=== PATIENT | male | born 1960 | race Caucasian/White ===

== ENCOUNTER 2018-03-25 19:30 | Outpatient (REF) | payer BC, SELFPAY ==
--- NOTE | 2018-03-25 17:50 | SKI_PTH ---
PATIENT: Rom Singh LOC: [facility] U#:[id number] AGE/SX: 57/M ROOM: RE03/25/[address]: Chapin Romo : 1960 BED: DIS: 03/25/2018 SPEC #: [id number] RECD: 03/26/18 12:21 STATUS: JUSTINE REImani #: [id number] STEVIE: 03/25/18 17:[address]: Chapin Romo DEPT: Surgical Specimen RECD BY: Celeste Simpson ENTERED: 03/26/18 12:22 SP TYPE: JIMMY MAGAÑA DR: Aria Hernandes V Tissues: 1 - SKIN BIOPSY(SHAVE/PUNCH) Procedures: SKIN LEVEL 4 Comments: [id number]
== END 2018-03-25 19:50 ==
LOC: NCHCN 19:30
PROVIDERS: PCP Family Medicine; Visit Provider Specialist/Technologist Athletic Trainer
DX: D18.01 Hemangioma of skin and subcutaneous tissue (principal)
CPT/HCPCS: 88305

== ENCOUNTER 2018-05-12 06:43 | Outpatient (CLI) | payer BC, SELFPAY ==
--- NOTE | 2018-05-12 07:00 | DI.US_ITS ---
SYMPTOM/DIAGNOSIS: ABD PAIN, R10.9, RT GREATER THAN LEFT ABDOMEN ULTRASOUND: Routine examination. No priors. The aorta is of normal caliber. The inferior vena cava is unremarkable. The liver is normal in size and echogenicity. There is a 2.3 cm., well circumscribed, anechoic lesion in the posterior aspect of the right lobe of the liver consistent with a cyst. There is a second 1.8 cm., partially septated anechoic lesion in the anterior aspect of the right lobe of the liver suggestive of a cyst. No solid renal mass is present. There is normal flow through the portal vein. The gallbladder, common duct, pancreas and spleen are all unremarkable. The left kidney has a normal appearance. The right kidney measures 10.9 cm. long. There is a 5.4 cm. simple, well circumscribed, anechoic lesion in the superior pole of the right kidney consistent with a simple cyst. IMPRESSION: 1. Hepatic cysts, one of which appears partially septated. A follow up examination is recommended. This may either be a post contrast CT scan of the abdomen or a follow up abdomen ultrasound in 4-6 months for re- evaluation of the hepatic cysts. 2. Right renal cyst.
== END 2018-05-12 07:03 ==
PROVIDERS: PCP Family Medicine; Visit Provider Specialist/Technologist Athletic Trainer
DX: R10.31 Right lower quadrant pain (principal); K76.89 Other specified diseases of liver; N28.1 Cyst of kidney, acquired
CPT/HCPCS: 76700

== ENCOUNTER 2018-05-26 00:18 | Outpatient (CLI) | payer BC, SELFPAY ==
--- NOTE | 2018-05-26 08:40 | DI.RAD_ITS ---
SYMPTOMS/DIAGNOSIS: DIFFICULTY SWALLOWING, ABDOMINAL PAIN, R13.10, R10.9 BARIUM SWALLOW AND UPPER GI SERIES: Preliminary films of the chest and abdomen are grossly unremarkable. Barium was ingested and showed grossly normal hypopharyngeal motility. Esophagus shows normal motility and mucosal appearance. The 12 mm barium tablet passed easily through the esophagus into the stomach. No gastric ulceration or obstruction seen. Duodenum appears intact. CONCLUSION: Negative upper GI and barium swallow.
[2018-05-26] MEDS: Barium Sulfate 60% W/V 355 ML BTL PO (09:52)
[2018-05-26] MEDS: Barium Sulfate 700 MG TAB PO (09:54)
== END 2018-05-26 00:38 ==
PROVIDERS: PCP Family Medicine; Visit Provider Specialist/Technologist Athletic Trainer
DX: R13.10 Dysphagia, unspecified (principal); R10.9 Unspecified abdominal pain
CPT/HCPCS: 74220; 74247

== ENCOUNTER 2018-12-09 07:28 | Outpatient (CLI) | payer BC, SELFPAY ==
[2018-12-09 10:54] LABS: CREATININE 0.96 mg/dL (0.70-1.30)
--- NOTE | 2018-12-09 11:30 | DI.CT_ITS ---
SYMPTOMS/DIAGNOSIS: MEDIASTINAL LYMPHADENOPATHY, R59.0, NIGHT SWEATS, CHEST PRESSURE, 40-POUND WEIGHT LOSS OVER 1 YEAR, DIAGNOSED WITH SARCOIDOSIS IN AUGUST 2018 CT SCAN OF THE CHEST: CT scan of the chest was performed following the uneventful administration of intravenous contrast material. Comparison examination is 07/28/18. There is again seen thoracic adenopathy. There are enlarged mediastinal, subcarinal and hilar lymph nodes present. The enlarged right paratracheal lymph node is again seen and measures 1.9 cm. This is unchanged compared to the prior examination (2.1 cm). There is an enlarged right hilar lymph node. It measures 2.4 cm. This is unchanged (2.4 cm). The previously noted left hilar lymph node measures 0.9 cm compared with 1.0 cm. The subcarinal lymph node measures 2.1 cm compared with 2.5 cm. The visualized thyroid gland appears unremarkable. The thoracic aorta is normal in appearance. The heart size is within normal limits. No significant pericardial effusion is seen. No pleural effusion or pneumothorax is identified. The lungs remain clear. The tracheobronchial tree is unremarkable. The upper abdominal images again show multiple hepatic and renal cysts. There are now enlarged lymph nodes in the region of the celiac axis and adjacent to the inferior vena cava. The largest measures 2.4 x 2 cm. IMPRESSION: 1. Stable thoracic adenopathy. 2. Upper abdominal adenopathy. CT scan of the abdomen and pelvis should be considered for further evaluation.
[2018-12-09] MEDS: Omnipaque 350 MG/ML 100 ML BTL IV (11:31)
== END 2018-12-09 07:48 ==
PROVIDERS: PCP Family Medicine; Visit Provider Internal Medicine Critical Care Medicine
DX: R59.0 Localized enlarged lymph nodes (principal); R61 Generalized hyperhidrosis; R07.89 Other chest pain; R63.4 Abnormal weight loss; D86.9 Sarcoidosis, unspecified; R93.89 Abnormal findings on diagnostic imaging of other specified body structures; Z13.89 Encounter for screening for other disorder
CPT/HCPCS: 71260; 82565; J3490

== ENCOUNTER 2020-05-18 18:02 | Outpatient (REF) | payer BC, SELFPAY ==
[2020-05-18 19:22] LABS: Abs Immature Grans 0.01 10^3/uL (0.0-0.06); Absolute Basophil Count 0.05 10^3/uL (0.0-0.2); Absolute Eosinophil Count 0.13 10^3/uL (0.0-0.7); Absolute Monocyte Count 0.66 10^3/uL (0.1-0.8); Absolute Neutrophil Count 3.18 10^3/uL (1.2-6.7); Basophils % 0.8; Eosinophils % 2.2; HCT 49.1 % (40.0-50.0); HGB 16.5 g/dL (13.5-17.5); Immature Grans % 0.2; MCH 29.9 pg (27.0-33.0); MCHC 33.6 % (32.0-36.0); MCV 88.9 fL (80-95); MPV 9.5 fL (8.0-11.0); Monocytes % 11.1; Neutrophils % 53.7; Nucleated RBC 0 %; Platelet Count 253 10^3/uL (130-400); RBC 5.52 10^6/uL (4.36-5.78); RDW 12.1 % (11.8-14.1); RDW-SD 39.8 fL; WBC 5.93 10^3/uL (4.4-10.8)
[2020-05-18 19:47] LABS: ALT 36 U/L (16-63); AST 25 U/L (15-37); Albumin 4.3 g/dL (3.4-5.0); Alkaline Phosphatase 92 U/L (46-116); Anion Gap 9.5 mmol/L (3-11); BUN 18 mg/dL (7-18); Bilirubin, Total 0.3 mg/dL (0.2-1.0); CO2 27.5 mmol/L (21.0-32.0); CREATININE 1.08 mg/dL (0.70-1.30); Calcium 9.1 mg/dL (8.5-10.1); Chloride 105 mmol/L (98-107); Glucose 114 mg/dL (74-106); Potassium 4.1 mmol/L (3.5-5.1); Sodium 142 mmol/L (136-145); TSH (W/Ref FT4) 0.75 uIU/mL (0.36-3.74); Total Protein 7.4 g/dL (6.4-8.2)
== END 2020-05-18 18:22 ==
LOC: NCHCN 18:02
PROVIDERS: PCP Family Medicine; Visit Provider Physician Assistant Medical
DX: R53.83 Other fatigue (principal)
CPT/HCPCS: 80053; 84443; 85025

== ENCOUNTER 2020-05-28 16:10 | Outpatient (REF) | payer BC, SELFPAY ==
[2020-05-28 19:47] LABS: Hemoglobin A1C 5.4 % (<5.7)
[2020-05-30 09:47] LABS: Lyme Ab w Rflx to Lyme Confirm Negative (Negative)
[2020-05-31 23:39] LABS: Anaplasma phagocytophilum Negative (Negative); B. miyamotoi PCR Negative (Negative); Babesia divergens/MO-1 Negative (Negative); Babesia duncani Negative (Negative); Babesia microti Negative (Negative); Ehrlichia chaffeensis Negative (Negative); Ehrlichia ewingii/canis Negative (Negative); Ehrlichia muris eauclairensis Negative (Negative)
== END 2020-05-28 16:30 ==
LOC: NCHCN 16:10
PROVIDERS: PCP Family Medicine; Visit Provider Physician Assistant Medical
DX: R73.9 Hyperglycemia, unspecified (principal); R53.83 Other fatigue
CPT/HCPCS: 87798; 83036; 86618

== ENCOUNTER 2020-12-02 07:52 | Emergency (ER) | payer BC, SELFPAY ==
[2020-12-02 07:58] VITALS: BP 150/77; PULSE 85; TEMP 36.5; O2SAT 97
--- NOTE | 2020-12-02 08:00 | W.ED.GENAD ---
Discharge Plan Disposition Patient Disposition: HOME Condition: Stable Discharge Details Clinical Impression: Post-nasal drip, Pharyngitis, Herpes simplex infection of rectum Primary Care Provider: Aria Hernandes V ED Provider: Josephine Rod Home Meds and New Rx's Prescriptions: New valacyclovir [Valtrex] 1 gram tablet 1,000 mg PO BID Qty: 20 RF: 0 lidocaine HCl [Lidocaine Viscous] 2 % solution 1 applic mucous membrane QID PRN (Reason: pain) Qty: 100 RF: 0 Discharge Instructions Instructions: Genital Herpes Simplex (ED), Pharyngitis (ED) Additional Instructions: Your sore throat appears to be from mucus running down the back of her throat associated with a runny nose. Please use nasal saline. You may use up to 20 times a day as needed to help with symptomatic management. Tylenol and/or ibuprofen as needed for discomfort. Encourage hydration. The rash on your rectum is most consistent with some form of herpes outbreak. Viral testing has been sent. Please continue to try and keep your stools soft to help prevent straining. Antiviral medication as well as a topical numbing agent has been sent to your pharmacy. Please follow-up with your primary care in 1 week for reevaluation. If you develop fever/chills, increased pain or other new/worsening symptom please seek care urgently once again. Referrals: Aria Hernandes MD [Primary Care Provider] - Discharge Data Discharge Date/Time-TO BE ENTERED AT DEPARTURE: 12/02/20 09:30 Medical Decision Making Patient is a pleasant 60-year-old gentleman presenting today with chief complaint of sore throat and rectal pain. States that he has been having some postnasal drip which came on prior to onset of sore throat. He denies any fevers or chills. States he has been having mild cough in the morning. No shortness of breath or difficulty breathing. Reports that that about 1 week ago he started noticing some bumps around his rectum that were quite tender. States that initially this was fairly itchy but is now a burning sensation. Is not had discomfort like this historically. Believes that he has hemorrhoids. States that he has noted some blood streaking on his toilet paper after wiping. Denies any blood in the stool. Patient does have past medical significant for sarcoidosis. He is not on prednisone, has been managing with exercise. On exam, patient appears nontoxic. Vital signs are stable. Patient has cobblestoning to the posterior aspect of his oropharynx. He did not have any herpetic lesions in the mouth. His sore throat is most consistent with this discomfort associated with postnasal drip. We did discuss treatment options for this. Rectal exam is concerning for vesicular lesions on a erythematous base consistent with herpetic infection. Swab for this was sent. Patient will be started on antiviral. Patient does report that he has had anal intercourse historically but none recently. He has not had outbreaks like this historically. Encourage close follow-up with primary care. Return precautions were discussed. Discussed this is is contagious. Patient will be given prescription for lidocaine to help with discomfort as well as dosing currently. All his questions and concerns were addressed and he is in agreement this plan. HPI General Mode of arrival: ambulatory. Date/Time Provider Initiated Documentation: 12/02/20 07:59. Limitations to Documentation: no limitations. Information obtained by: patient and RN notes reviewed. History of Present Illness 60 year old M presents to the emergency department with the chief complaint of sore throat, rectal discomfort, described as severe, with intensity rated at 7. Quality is described as burning, and is localized to the mouth and genitals. Patient started experiencing this day(s) (3) and it has been constant. No relieving factors improve symptom(s), No exacerbating factors reported . Patient notes rash (rectum); denies cough, fever/chills, nausea/vomiting and shortness of breath. Patient did receive the following treatments prior to arrival, none Related Data Home Medications Medication Instructions Recorded Confirmed lidocaine HCl [Lidocaine Viscous] 1 applic MUCOUS MEMBRANE QID PRN 12/02/20 #100 ml valacyclovir [Valtrex] 1,000 mg PO BID #20 tab 12/02/20 Previous Rx's Medication Instructions Recorded lidocaine HCl [Lidocaine Viscous] 1 applic MUCOUS MEMBRANE QID PRN 12/02/20 #100 ml valacyclovir [Valtrex] 1,000 mg PO BID #20 tab 12/02/20 Allergies Allergy/AdvReac Type Severity Reaction Status Date / Time No Known Allergies Allergy Unverified 12/02/20 08:03 Review of Systems Constitutional Constitutional: Reports as per HPI, Denies chills, Denies fever(s) and Denies headache(s) Eyes Eyes: Reports as per HPI, Denies eye discharge and Denies irritation ENT Ears, Nose, Mouth, and Throat: Reports as per HPI and Denies headache(s) Cardiovascular Cardiovascular: Reports as per HPI, Denies chest pain and Denies dyspnea Respiratory Respiratory: Reports as per HPI and Denies dyspnea Gastrointestinal Gastrointestinal: Reports as per HPI, Denies abdominal pain, Reports change in bowel habits (hsa been straining more for BM recently ), Denies diarrhea, Denies nausea and Denies vomiting Genitourinary Genitourinary: Denies genital lesions, Denies genital pain, Denies dysuria and Denies urinary urgency Integumentary/Breasts Skin/Breast: Reports as per HPI and Reports rash Neurologic Neurologic: Reports as per HPI and Denies headache(s) [facility] Medical History (Updated 12/02/20 @ 09:13 by ADA Blakely) Essential hypertension Family History Father Personal history of malignant neoplasm Colon Cancer Social History Smoking/Tobacco Use Status: Never Smoking risk assessment performed?: Yes Alcohol Intake: never Drug use: Never Substance use type: does not use Do you feel safe at home: Yes Do you feel safe in your relationship?: Yes Exam Const General: cooperative, healthy appearing, uncomfortable, no acute distress, well developed, well groomed and anxious Nutritional Appearance: average body habitus and well nourished Orientation: alert and awake [facility] Head: normal to inspection, normocephalic and atraumatic Ears: hearing grossly normal bilaterally, external ears normal and TM's normal bilaterally General nose exam: external nose normal and nares normal Face and sinus: normal facial exam, sinuses nontender and face symmetric Mouth: oral mucosae normal, lip normal, tongue normal, oropharynx normal and moist mucous membranes Teeth and gingiva: dentition normal Throat: posterior oropharynx abnormal (cobblestoning in posterior orophrynx, no herpetic lesions are visualized), tonsils normal and uvula midline Eyes General: appearance normal, both eyes and all related structures Neck Neck: normal visual inspection, full ROM and no lymphadenopathy Resp Effort & Inspection: normal respiratory effort, able to speak in complete sentences and no respiratory distress Auscultation: clear to auscultation bilaterally, no rales, no rhonchi and no wheezes Cardio Rate: regular rate Rhythm: regular rhythm Heart Sounds: S1 normal and S2 normal GI Rectal Exam: abnormal visual inspection (Patient has rash surrounding rectum in various stages. ) Other: Vesicular lesions on erythematous base, some are ruptured and raw while others are still closed. Very tender to palpation. Secondary to pain, digital rectal exam is not able to be performed. Skin General skin exam: no rashes or lesions noted Neuro General: patient alert and patient awake Cognition: normal cognition Speech: speech normal Gait: normal gait Psych Appearance: grossly normal and well kempt Mental Status: mental status grossly normal Speech and Movement: speech and movement normal
[2020-12-02 10:49] VITALS: RESP 16
[2020-12-06 10:53] LABS: HSV 1 DNA Result Positive (Negative); HSV 2 DNA Result Negative (Negative)
== END 2020-12-02 09:30 | disposition home or self-care (01) ==
PROVIDERS: Emergency Provider Physician Assistant; PCP Family Medicine
DX: R09.82 Postnasal drip (principal); J02.9 Acute pharyngitis, unspecified; A60.1 Herpesviral infection of perianal skin and rectum
CPT/HCPCS: 87529; 87880; 99283; 87081

== ENCOUNTER 2021-01-18 09:55 | Day surgery (SDC) | payer BC, SELFPAY ==
--- NOTE | 2021-01-17 15:02 | W.COLOREPORT ---
Date of service: 01/18/21 Time of Service: 09:00 Colonoscopy Report Date of procedure: 01/18/21 Pre-op diagnosis general: villous adenoma Post-op diagnosis procedure note: same Surgeon: Beth Yin Anesthesia Type: General:No Airway Estimated blood loss (mL): 3 Pathology: other Complications: None Disposition: same day Prep: Miralax/Dulcolax Retraction Time: 20 Procedure Description: After informed consent was obtained the patient was taken to the procedure room and placed in a left decubitous position. Monitors were applied and a time out was done. The patients name, date of , procedure, allergies to medications and metal in their body was reviewed. The patient was then sedated. Once sedated and comfortable a rectal exam was done. External exam was normal. Internal exam revealed a normal sphincter tone and no palpable masses. The scope was then introduced and retrofelexed. no internal hemorrhoids were identified. The scope was then advanced to the cecum without difficulty. He has a significant amount of retained fecal contents. The colon was extensively lavaged with 2 L of saline, however, lesions less than 5mm may have been missed. The TI and appendiceal orifice were identified. The scope was then slowly retracted over 20 minutes back into the rectum. Polyps were removed at he had a .75 cm flat polyp at 30 cm. This is removed with a hot biting forcep. He had a large flat adenomatous polyp at 10 cm. This is removed with multiple passes of a hot snare. 2 endoclips were placed over the defect. The area was tattooed.. The scope was removed and the patient was woken up and taken back to Same day surgery in stable condition. The patient tolerated the procedure well and there were no immediate complications. Follow up: The patient should follow up in 1 years unless they develop changes in bowel habits or other new gastrointestinal complaints.
--- NOTE | 2021-01-17 15:03 | PDOC.DSDIS_ITS ---
Discharge Plan Disposition Patient Disposition: HOME Condition: Good Discharge Details Reason For Visit: colon scope Attending Provider: Beth Yin Primary Care Provider: Aria Hernandes V Home Meds and New Rx's Prescriptions: Continued bisacodyl [Dulcolax (bisacodyl)] 5 mg tablet,delayed release (DR/EC) 5 mg PO ONCE Qty: 4 RF: 0 polyethylene glycol 3350 17 gram/dose powder 238 g PO ONCE Qty: 238 RF: 0 Discharge Instructions Additional Instructions: DSU Colonoscopy Post- Op Instructions Instructions for Everyone who is given Anesthesia: For your safety, please do the following for the next twenty-four (24) hours: *Do Not operate a motor vehicle (car, truck, motorcycle, etc.) *Do Not drink alcoholic beverages or use any recreational drugs for the first 24 hours or while taking pain medications. The medications in your body may have a reaction that can be dangerous. *Do Not make any important decisions or sign any important papers. Findings: x2 polyps -no asa/nsaid's x 5 days -soft diet x 72 hrs Follow up: repeat scope in 1 yrs time 1. No lifting over 20 pounds or strenuous activity for the first 72 hours after your procedure. After 72 hours there are no restrictions on your activity but you may feel fatigued for a few days. 2. After you arrive home you may have a light meal and return to your normal diet as you can tolerate it without feeling sick to your stomach. 3. You may have a bloated, gaseous feeling in your belly (abdomen) after a colonoscopy. Passing gas and belching will help. Walking or lying down on your left side with your knees flexed may relieve the discomfort. Call the office at [phone] (Office) or [phone] (Hospital) right away if you notice any of the following: a.Vomiting of blood or ?coffee ground stools?. b.Rectal bleeding 1Tbsp, blood clots or continuous bleeding. c.Severe belly (abdominal) pain. d.A hard distended belly (abdomen) and an inability to pass gas. 4. Please don?t expect to have a normal BM (bowel movement) for 2-3 days after your procedure. 5. If there are questions regarding the findings of your procedure, please contact your doctor 6. If you are unable to contact your doctor with a problem, contact the hospital at [phone]. 7. Continue all your regular medications unless directed otherwise. I understand the above instructions and have no questions. Signature of Patient or Adult Escort Name of Responsible Adult Escort Signature of Nurse Date/Time Activity:: see above Diet:: see above Discharge Orders Discharge Orders: Discharge Order (Routine); Ordered 01/17/21 Ordered By: Beth Yin DS: Diagnosis Discharge Diagnosis (1) Sarcoidosis: Status: Inactive (2) Tubulovillous adenoma: Status: Inactive
--- NOTE | 2021-01-18 06:15 | W.ANESPRE ---
General Info Date of Service Date Performed: 01/18/21 Height: 5 ft 7 in Weight: 72.121 kg Body Mass Index (BMI): 24.9 Surgical Procedure: Operation Date: 01/18/21 10:35 Proposed Procedures Side Surgeon veronica Yin DO Meds Allergies and Home Medications Allergies Allergy/AdvReac Type Severity Reaction Status Date / Time No Known Allergies Allergy Verified 01/18/21 10:09 Home Medication Medication Instructions Recorded bisacodyl 5 mg tablet,delayed 5 mg PO ONCE #4 tab 01/14/21 release polyethylene glycol 3350 17 238 g PO ONCE #238 g 01/14/21 gram/dose oral powder Current Visit Medications: Current Medications Generic Name Dose Route Start Last Admin Trade Name Freq PRN Reason Stop Dose Admin Hyoscyamine Sulfate 0.125 mg 01/17/21 15:02 Hyoscyamine 0.125 Mg Sl/Oral/Chew SL DIRECTED PRN Ringer's Solution 1,000 mls @ 80 mls/hr 01/18/21 06:00 IV 02/16/21 23:59 INFUSION MOOKIE IV Miscellaneous Supplies 1 each 01/18/21 06:00 Iv Access IV 02/16/21 23:59 DIRECTED MOOKIE Ondansetron HCl 4 mg 01/17/21 15:02 Ondansetron 4 Mg/2 Ml Vial IVP Q4H PRN PRN Nausea / Vomiting Sodium Chloride 0 ml 01/18/21 06:00 Normal Saline Flush 10 Ml Syr IV 02/16/21 23:59 PRN PRN Sodium Chloride 0 ml 01/18/21 06:00 Normal Saline 10 Ml Vial IJ 02/16/21 23:59 DIRECTED PRN Sterile Water 0 ml 01/18/21 06:00 Water,Injection,Sterile 10 Ml Vial IJ 02/16/21 23:59 DIRECTED PRN PFSH Active Problems Active Problems: Problem Status Onset Code Post-nasal drip R09.82 Pharyngitis J02.9 Herpes simplex infection of rectum A60.1 Medical History Medical History Body aches Chest pain Per pt.EKG in office came out ok. Essential hypertension Hepatic cyst Herpes simplex infection of rectum HSV (herpes simplex virus) infection Hyperglycemia Insomnia Rash, skin Rectal bleed Sarcoidosis Tubulovillous adenoma Tobacco Smoking/Tobacco Use Status: Never Alcohol Alcohol Intake: never Substance Use Substance use: Never Substance use type: does not use Vital Signs and Lab Results Lab Results Blood Type / Crossmatch: No Data to Display Complete Blood Count: No Data to Display Complete Metabolic Panel: No Data to Display Liver Function Panel: No Data to Display Coagulation Panel: No Data to Display Cardiac Panel: No Data to Display Arterial Blood Gas: No Data to Display Venous Blood Gas: No Data to Display Pancreas Panel: No Data to Display Thyroid Panel: No Data to Display Infectious Disease: No Data to Display Blood Cultures: No Data to Display Toxicology Panel: No Data to Display Imaging and Studies Imaging and Studies EKG Summary: 11/2020: sinus rhythm, LAE. Anesthesia Assessment and Plan Anesthesia History Personal History: No History of Anesthesia Complications Family History: No Family History of Anesthesia Complications Exercise Tolerance Exercise Tolerance: Metabolic Equivalents>4 Pertinent Negatives Pertinent Negatives: No Symptoms of GERD, No Major Cardiovascular Symptoms or Complaints, No Major Pulmonary Symptoms or Complaints and No History of CVA/TIA Cardiac & Pulmonary Exam Cardiac Exam: Normal S1/S2 Heart Sounds Pulmonary Exam: Clear Bilateral Breath Sounds Airway Exam Known Difficult Airway: No Mallampati Class: 2 Mouth Opening: Normal (> 3cm) Thyromental Distance: Greater than 3 cm Neck Range of Motion: Full ROM Neck Circumference: Normal Teeth Condition: Normal Dentition ASA Classification ASA Score: ASA 2 Emergency Case?: No NPO Status NPO Status: NPO Clears >2 hours, Solids >8 hours Anesthesia Plan Resuscitation Status: Full Code Anesthesia Technique: General Anesthesia Airway Planned: Natural Airway Monitors Used: Standard Monitors Preoperative Comments:: 60 yo male for [place] for history of polyps and rectal bleeding. Previous colo with tubulovillious adenomatous polyps, also has history of family history of colon cancer. Sig PMHx of HTN, sarcoidosis
[2021-01-18 10:04] VITALS: BP 141/90; PULSE 70; RESP 16; TEMP 36.7; O2SAT 98
[2021-01-18 10:17] VITALS: BMI 24.9
[2021-01-18] MEDS: Lactated Ringers 1,000 ML 80 ML IV (10:23)
--- NOTE | 2021-01-18 11:02 | BOWEL_PTH ---
PATIENT: Rom Singh LOC: [facility] U#:[id number] AGE/SX: 60/M ROOM: RE01/18/[address]: Beth Yin : 1960 BED: DIS: 01/18/2021 SPEC #: [id number] RECD: 01/18/21 13:04 STATUS: JUSTINE REImani #: [id number] STEVIE: 01/18/21 11:[address]: Beth Yin DEPT: Surgical Specimen RECD BY: Celeste Simpson ENTERED: 01/18/21 13:05 SP TYPE: Bowel OTHR DR: Aria Hernandes V Tissues: 1 - BIOPSY BOWEL 2 - BIOPSY BOWEL Procedures: GROSS AND MICRO LEVEL 4 Comments: [id number]
[2021-01-18] MEDS: Endoscopic Tattoo 5 ML SYR IJ (11:20)
[2021-01-18 11:28] VITALS: BP 116/66; PULSE 60; RESP 14; TEMP 36.5; O2SAT 97
--- NOTE | 2021-01-18 12:09 | W.ANESPOSTOP ---
Postoperative Evaluation Date, Time and Location Date Performed: 01/18/21 Time Performed: 12:09 Patient Location: Day Surgery Unit Vital Signs Most Recent Imported Vital Signs: Most Recent Vital Signs Temp Pulse Resp BP Pulse Ox 36.5 C 60 14 116/66 97 01/18/21 11:28 01/18/21 11:28 01/18/21 11:28 01/18/21 11:28 01/18/21 11:28 Pain Score Most Recent Pain Score: Most Recent Pain Score Pain Level 0 01/18/21 11:28 Assessment Mental Status: Awake (Alert & Oriented to Patient Baseline) Airway and Respiratory Function: Patent airway with normal (patient baseline) respiratory exam Cardiovascular Function: Hemodynamically Stable Hydration Status: Adequately Hydrated Nausea & Vomiting: No Nausea or Vomiting Pain: Pt. Denies Any Pain Peripheral Nerve Block: Patient did not receive a nerve block
[2021-01-18 12:13] VITALS: BP 119/75; PULSE 67; RESP 15; TEMP 36.3; O2SAT 99
== END 2021-01-18 12:30 | disposition home or self-care (01) ==
PROVIDERS: PCP Family Medicine; Visit Provider Surgery
PROC: 0DJD8ZZ Inspection of Lower Intestinal Tract, Via Natural or Artificial Opening Endoscopic (ICD-10-PCS; CPT 45378; principal; 2021-01-18 10:30)
DX: Z12.11 Encounter for screening for malignant neoplasm of colon (principal); D12.8 Benign neoplasm of rectum; D12.5 Benign neoplasm of sigmoid colon; Z86.010 Personal history of colon polyps; Z80.0 Family history of malignant neoplasm of digestive organs; I10 Essential (primary) hypertension; R73.9 Hyperglycemia, unspecified; D86.9 Sarcoidosis, unspecified
CPT/HCPCS: 45385; 45384; 45381; 88305; J2001; J2704

== ENCOUNTER 2021-02-19 15:42 | Outpatient (REF) | payer BC, SELFPAY ==
[2021-02-19 19:54] LABS: Abs Immature Grans 0.01 10^3/uL (0.0-0.06); Absolute Basophil Count 0.04 10^3/uL (0.0-0.2); Absolute Eosinophil Count 0.05 10^3/uL (0.0-0.7); Absolute Lymphocyte Count 1.76 10^3/uL (1.2-3.4); Absolute Monocyte Count 0.58 10^3/uL (0.1-0.8); Absolute Neutrophil Count 3.41 10^3/uL (1.2-6.7); Basophils % 0.7; Eosinophils % 0.9; HCT 48.2 % (40.0-50.0); HGB 15.8 g/dL (13.5-17.5); Immature Grans % 0.2; Lymphocytes % 30.1; MCH 29.8 pg (27.0-33.0); MCHC 32.8 % (32.0-36.0); MCV 90.8 fL (80-95); MPV 9.9 fL (8.0-11.0); Monocytes % 9.9; Neutrophils % 58.2; Nucleated RBC 0 %; Platelet Count 248 10^3/uL (130-400); RBC 5.31 10^6/uL (4.36-5.78); RDW 12.2 % (11.8-14.1); RDW-SD 40.7 fL; WBC 5.85 10^3/uL (4.4-10.8)
[2021-02-21 10:05] LABS: Syphilis Serology (RPR) Negative (Negative)
[2021-02-21 11:58] LABS: HIV-1/2 Ag & Ab Screen Negative (Negative)
== END 2021-02-19 15:43 | disposition home or self-care (01) ==
LOC: NCHCN 15:42
PROVIDERS: PCP Family Medicine; Visit Provider Physician Assistant Medical
DX: R21 Rash and other nonspecific skin eruption (principal)
CPT/HCPCS: 87389; 85025; 86592

== ENCOUNTER 2021-03-06 07:58 | Outpatient (REF) | payer BC, SELFPAY ==
--- NOTE | 2021-03-06 19:15 | SKI_PTH ---
PATIENT: Rom Singh [facility] U[id number] AGE/SX: 60/M ROOM: RE03/06/[address]: Mirela Luna : 1960 BED: DIS: 03/06/2021 SPEC #: [id number] RECD: 03/07/21 13:06 STATUS: JUSTINE LAMB #: [id number] STEVIE: 03/06/21 19:[address]: Mirela Luna DEPT: Surgical Specimen RECD BY: Celeste Simpson ENTERED: 03/07/21 13:07 SP TYPE: JIMMY MAGAÑA DR: Aria Hernandes V Tissues: 1 - SKIN BIOPSY(SHAVE/PUNCH) Procedures: SKIN LEVEL 4 SPECIAL STAIN 1 Comments: [id number]
== END 2021-03-06 07:59 | disposition home or self-care (01) ==
LOC: NCHCN 07:58
PROVIDERS: PCP Family Medicine; Visit Provider Nurse Practitioner Family
DX: R23.4 Changes in skin texture (principal)
CPT/HCPCS: 88305; 88312

== ENCOUNTER 2021-06-18 17:34 | Outpatient (REF) | payer BC, SELFPAY ==
[2021-06-18 21:14] LABS: C-Reactive Protein 0.16 mg/dL (0.0-0.3)
[2021-06-18 21:16] LABS: ESR 11 mm/hr (0-20)
[2021-06-19 16:56] LABS: Rheumatoid Factor <8.6 IU/mL (<12.0)
[2021-06-20 10:22] LABS: Cyclic Citrullinated Peptide <2.5 U/mL (<5.0)
[2021-06-20 13:49] LABS: ANA Interpretation Negative (Negative)
== END 2021-06-18 17:35 | disposition home or self-care (01) ==
LOC: NCHCN 17:34
PROVIDERS: PCP Family Medicine; Visit Provider Nurse Practitioner Family
DX: M25.59 Pain in other specified joint (principal)
CPT/HCPCS: 85652; 86200; 86038; 86140; 86431

== ENCOUNTER 2021-09-18 09:33 | Outpatient (REF) | payer BC, SELFPAY ==
[2021-09-18 14:02] LABS: Anion Gap 9.7 mmol/L (3-11); BUN 11 mg/dL (7-18); CO2 29.3 mmol/L (21.0-32.0); Calcium 9.5 mg/dL (8.5-10.1); Calculated LDL 164 mg/dL (<100); Chloride 103 mmol/L (98-107); Cholesterol 228 mg/dL (<200); Glucose 90 mg/dL (74-106); HDL Cholesterol 50 mg/dL (40-60); Potassium 4.2 mmol/L (3.5-5.1); Sodium 142 mmol/L (136-145); Triglyceride 73 mg/dL (<150)
== END 2021-09-18 09:34 | disposition home or self-care (01) ==
LOC: NCHCN 09:33
PROVIDERS: PCP Family Medicine; Visit Provider Physician Assistant Medical
DX: Z00.00 Encounter for general adult medical examination without abnormal findings (principal); Z13.220 Encounter for screening for lipoid disorders; Z13.228 Encounter for screening for other metabolic disorders
CPT/HCPCS: 80048; 80061

== ENCOUNTER 2023-03-13 16:54 | Outpatient (REF) | payer BC, SELFPAY ==
[2023-03-13 18:57] LABS: Abs Immature Grans 0.01 10^3/uL (0.0-0.06); Absolute Basophil Count 0.05 10^3/uL (0.0-0.2); Absolute Eosinophil Count 0.15 10^3/uL (0.0-0.7); Absolute Lymphocyte Count 2.74 10^3/uL (1.2-3.4); Absolute Monocyte Count 0.68 10^3/uL (0.1-0.8); Absolute Neutrophil Count 3.16 10^3/uL (1.2-6.7); Basophils % 0.7; Eosinophils % 2.2; Immature Grans % 0.1; Lymphocytes % 40.4; MCH 29.6 pg (27.0-33.0); MCV 87 fL (80-95); MPV 9.4 fL (8.0-11.0); Neutrophils % 46.6; Platelet Count 256 10^3/uL (130-400); RBC 5.41 10^6/uL (4.36-5.78); RDW 12.6 % (11.8-14.1); RDW-SD 39.4 fL; WBC 6.79 10^3/uL (4.4-10.8)
[2023-03-13 19:14] LABS: ALT 45 U/L (16-63); AST 26 U/L (15-37); Albumin 4.2 g/dL (3.4-5.0); Alkaline Phosphatase 84 U/L (46-116); Anion Gap 8.1 mmol/L (3-11); BUN 23 mg/dL (7-18); Bilirubin, Total 0.4 mg/dL (0.2-1.0); CO2 24.9 mmol/L (21.0-32.0); Calcium 9.9 mg/dL (8.5-10.1); Chloride 105 mmol/L (98-107); Estimated GFR 86.16 (mL/min/1.73m2); Glucose 100 mg/dL (74-106); NT-proBNP 13 pg/mL (<300); Sodium 138 mmol/L (136-145); TSH (W/Ref FT4) 0.71 uIU/mL (0.36-3.74); Total Protein 8.1 g/dL (6.4-8.2)
== END 2023-03-13 16:55 | disposition home or self-care (01) ==
LOC: NCHCN 16:54
PROVIDERS: PCP Family Medicine; Visit Provider Nurse Practitioner Family
DX: R06.02 Shortness of breath (principal); R63.5 Abnormal weight gain; R10.84 Generalized abdominal pain
CPT/HCPCS: 80053; 83880; 84443; 85025

== ENCOUNTER 2023-11-13 10:42 | Emergency (ER) | payer BC, SELFPAY ==
--- NOTE | 2023-11-13 10:30 | RT.EKG_ITS ---
APPROVED REPORT Exam: Resting ECG Reason for Exam: Chest pain Patient Location: E HR:70 bpm ECG Measurements Heart Rate 70 AXIS SD 165 P 46 QRSd 84 QRS -43 QT 380 T 48 QTc 412 Conclusion sinus 70 no stemi
[2023-11-13 10:45] VITALS: BP 176/91; PULSE 78; RESP 16; TEMP 36.7; O2SAT 98
[2023-11-13 10:50] VITALS: RESP 18
[2023-11-13] MEDS: nitroGLYcerin 0.4 MG TAB SL (10:59)
[2023-11-13] MEDS: Aspirin 81 MG CHEW 324 MG CH (10:59)
[2023-11-13 11:00] LABS: Abs Immature Grans 0.02 10^3/uL (0.0-0.06); Absolute Basophil Count 0.05 10^3/uL (0.0-0.2); Absolute Eosinophil Count 0.21 10^3/uL (0.0-0.7); Absolute Lymphocyte Count 3.41 10^3/uL (1.2-3.4); Absolute Monocyte Count 0.63 10^3/uL (0.1-0.8); Absolute Neutrophil Count 2.58 10^3/uL (1.2-6.7); Basophils % 0.7 %; HCT 45.9 % (40.0-50.0); HGB 15.8 g/dL (13.5-17.5); Immature Grans % 0.3 %; Lymphocytes % 49.4 %; MCH 30.2 pg (27.0-33.0); MCHC 34.4 % (32.0-36.0); MCV 88 fL (80-95); MPV 8.8 fL (8.0-11.0); Monocytes % 9.1 %; Neutrophils % 37.5 %; Platelet Count 220 10^3/uL (130-400); RBC 5.24 10^6/uL (4.36-5.78); RDW 12.1 % (11.8-14.1); RDW-SD 38.8 fL
[2023-11-13 11:31] LABS: ALT 84 U/L (16-63); AST 18 U/L (15-37); Albumin 4.1 g/dL (3.4-5.0); Alkaline Phosphatase 85 U/L (46-116); BUN 19 mg/dL (7-18); Bilirubin, Total 0.5 mg/dL (0.2-1.0); Calcium 9.4 mg/dL (8.5-10.1); Chloride 104 mmol/L (98-107); Estimated GFR 85.63 (mL/min/1.73m2); Glucose 98 mg/dL (74-106); NT-proBNP 34 pg/mL (<300); Potassium 3.9 mmol/L (3.5-5.1); Sodium 141 mmol/L (136-145); Total Protein 7.8 g/dL (6.4-8.2); Troponin I < 50 ng/L (< or =60)
[2023-11-13 12:00] LABS: PTT Activated 27.6 sec (23.6-32.8); Prothrombin Time 10.4 sec (9.1-11.1)
[2023-11-13 12:15] VITALS: BP 115/89; PULSE 89; RESP 16; TEMP 36.7; O2SAT 100
--- NOTE | 2023-11-13 12:37 | ED.GENADUL_ITS ---
Discharge Plan Disposition Patient Disposition: Home Condition: Stable Discharge Details Clinical Impression: Chest pain Primary Care Provider: Aria Hernandes V ED Provider: Niraj Silvestre Home Meds and New Rx's Prescriptions: No Action No Known Home Meds Discharge Instructions Instructions: Chest pain Additional Instructions: YOU HAVE NOT HAD CHEST PAIN IN OVER 12 HOURS AND YOUR LAB WORK IS NORMAL YOUR EKG IS ALSO NORMAL PLEASE FOLLOW UP WITH YOUR PCP FOR OUTPATIENT STRESS TEST REFERRAL IF YOU HAVE PERSISTENT SYMPTOMS OR OTHER CONCERNS PLEASE RETURN TO THE ED Discharge Data Discharge Date/Time-TO BE ENTERED AT DEPARTURE: 11/13/23 12:18 HPI General Date/Time Provider Initiated Documentation: 11/13/23 10:46 . Limitations to Documentation: no limitations . Information obtained by: patient . HPI Narrative: 63-year-old gentleman without significant past medical history presents for evaluation of chest pain. He reports onset of chest pain last night around 10PM. He states that he was getting ready for bed. He states it lasted for a few minutes. Associated with some nausea, no diaphoresis, mild shortness of breath. Symptoms resolved spontaneously without intervention. He reports pain under the left chest with no radiation. He reports that this is the second time he is felt pain this week. He did not have any pain this morning when he woke up. He has not had recurrence of symptoms since last night. He does not smoke, have diabetes, or take medication for his blood pressure. Related Data Home Medications Medication Instructions Recorded Confirmed Unknown [No Known Home Meds] 02/27/21 Allergies Allergy/AdvReac Type Severity Reaction Status Date / Time No Known Allergies Allergy Verified 11/13/23 10:47 General Stated Complaint: Chest Pain DAHLIA: 3 Exam Narrative Exam Narrative: Review of Systems: All systems reviewed & are unremarkable except as noted in HPI and below Well-developed, no acute distress NCAT PERRL, normal conjunctiva RRR, no chest wall tenderness Unlabored respiratory effort, clear bilaterally Nondistended abdomen soft nontender, Extremities w/o deformity, no cyanosis, no edema No rashes or lesions. no focal neurologic deficits Appropriate mood and affect Course Vital Signs Vital signs: Vital Signs Temperature 36.7 C 11/13/23 10:45 Pulse 78 11/13/23 10:45 Respiratory Rate 16 11/13/23 10:45 Blood Pressure 176/91 H 11/13/23 10:45 Pulse Oximetry 98 11/13/23 10:45 Temperature 36.7 C 11/13/23 12:15 Temperature Source Tympanic 11/13/23 12:15 Pulse 89 11/13/23 12:15 Respiratory Rate 16 11/13/23 12:15 Respiratory Effort Normal 11/13/23 10:50 Respiratory Depth Normal 11/13/23 10:50 Respiratory Pattern Normal 11/13/23 10:50 Blood Pressure 115/89 11/13/23 12:15 Pulse Oximetry 100 11/13/23 12:15 Oxygen Delivery Method Room Air 11/13/23 12:15 Oxygen Flow Rate 0 11/13/23 12:15 Lab/Test Results Lab/Test Results: Laboratory Tests Range/Units 11/13/23 11/13/23 10:50 13:49 WBC (4.4-10.8) 10^3/uL 6.90 RBC (4.36-5.78) 10^6/uL 5.24 Hgb (13.5-17.5) g/dL 15.8 Hct (40.0-50.0) % 45.9 MCV (80-95) fL 88 MCH (27.0-33.0) pg 30.2 MCHC (32.0-36.0) % 34.4 RDW (11.8-14.1) % 12.1 Plt Count (130-400) 10^3/uL 220 MPV (8.0-11.0) fL 8.8 Immature Gran % % 0.3 Neutrophils % % 37.5 Lymphocytes % % 49.4 Monocytes % % 9.1 Eosinophils % % 3.0 Basophils % % 0.7 Nucleated RBC % (0.0-0.3) % 0.0 Absolute Neutrophils (1.2-6.7) 10^3/uL 2.58 Absolute Lymphocytes (1.2-3.4) 10^3/uL 3.41 H Absolute Monocytes (0.1-0.8) 10^3/uL 0.63 Absolute Eosinophils (0.0-0.7) 10^3/uL 0.21 Absolute Basophils (0.0-0.2) 10^3/uL 0.05 PT (9.1-11.1) sec 10.4 INR (0.9-1.1) 1.0 APTT (23.6-32.8) sec 27.6 Sodium (136-145) mmol/L 141 Potassium (3.5-5.1) mmol/L 3.9 Chloride (98-107) mmol/L 104 Carbon Dioxide (21.0-32.0) mmol/L 28.0 Anion Gap (3-11) mmol/L 9.0 BUN (7-18) mg/dL 19 H Creatinine (0.70-1.30) mg/dL 1.0 Est GFR (CKD-EPI 2020) (mL/min/1.73m2) 85.63 Glucose (74-106) mg/dL 98 Calcium (8.5-10.1) mg/dL 9.4 Magnesium (1.8-2.4) mg/dL 2.0 Total Bilirubin (0.2-1.0) mg/dL 0.5 AST (15-37) U/L 18 ALT (16-63) U/L 84 H Alkaline Phosphatase (46-116) U/L 85 Troponin I (< or =60) ng/L < 50 Cancelled NT-Pro-B Natriuret Pep (<300) pg/mL 34 Total Protein (6.4-8.2) g/dL 7.8 Albumin (3.4-5.0) g/dL 4.1 Medical Decision Making Emergent evaluation of chest pain. Patient has no risk factors for her chest pain and a low heart score. Aspirin given. He does not have chest pain at this time. Initially his blood pressure was elevated, but after settling in the room, his blood pressure normalized. He does not have a history of hypertension and does not take medication for his blood pressure. Given that his chest pain was over 12 hours ago, will get single troponin, lab work and reassess. EKG reviewed, sinus, no acute ST segment changes. Lab work reviewed, troponin negative. Remainder of lab work unremarkable. At this time the patient has not had recurrence of his pain. Plan for discharge home. Recommend follow-up with his PCP for outpatient stress test. Return precautions advised. Discharged in good condition. Medical Records Medical records reviewed: Yes I reviewed the patient's medical records. Lab Data Lab results reviewed: Yes I reviewed the patient's lab results. Quality:SDOH Health Related Social Needs: No Data to Display PFSH All Active Problems Chest pain (Acute) Tubulovillous adenoma (Acute) Dysplastic colon polyp (Acute) Post-nasal drip (Acute) Pharyngitis (Acute) Herpes simplex infection of rectum (Acute) Medical History Insomnia Hepatic cyst Sarcoidosis Hyperglycemia Body aches Chest pain Per pt.EKG in office came out ok. Rash, skin HSV (herpes simplex virus) infection Rectal bleed Essential hypertension Family History Father Personal history of malignant neoplasm Colon Cancer Social History Smoking/Tobacco Use Status: Never Smoking risk assessment performed?: Yes Alcohol Intake: never Drug use: Never Substance use type: does not use Do you feel safe at home: Yes Do you feel safe in your relationship?: Yes
== END 2023-11-13 12:18 | disposition home or self-care (01) ==
PROVIDERS: Emergency Provider Emergency Medicine; PCP Family Medicine
DX: R07.9 Chest pain, unspecified (principal); R03.0 Elevated blood-pressure reading, without diagnosis of hypertension
CPT/HCPCS: 80053; 93005; 99281; 99283; 83735; 83880; 84484; 85025; 85610; 85730; 93010; 99282

== ENCOUNTER 2023-11-16 15:46 | Outpatient (REF) | payer BC, SELFPAY ==
[2023-11-16 19:54] LABS: Amylase 93 U/L (25-115); Lipase 72 U/L (16-77)
[2023-11-16 21:22] LABS: Calculated LDL 146 mg/dL (<100); Cholesterol 245 mg/dL (<200); HDL Cholesterol 43 mg/dL (40-60); Triglyceride 281 mg/dL (<150)
== END 2023-11-16 15:47 | disposition home or self-care (01) ==
LOC: LBN 15:46
PROVIDERS: PCP Family Medicine; Visit Provider Physician Assistant Medical
DX: R07.9 Chest pain, unspecified (principal); R10.9 Unspecified abdominal pain
CPT/HCPCS: 80061; 83690; 82150

== ENCOUNTER → 2023-12-07 02:22 | Outpatient (CLI) | payer BC, SELFPAY ==
--- NOTE | 2023-12-07 | ETT_ITS ---
APPROVED REPORT Exam: Exercise Treadmill Patient Location: Out-Patient Room/Bed: Stress Nurse: Joslyn Teague RN Ordering Provider:CHANEL LOWERYGUSTABO, Contact Number: [phone] BMI: 28.97 Baseline Rhythm: Sinus Rhythm Indications: Chest pain, Medical History Medical History: Insomnia, hepatic cyst, sarcoidosis, hyperglycemia, chest pain, HSV infection, essen tial HTN Cardiac Medications: Rosuvastatin Allergies: NKA Cardiac Risk Factors: HTN, family hx Previous Cardiac Procedures: None Pretest Chest Pain Characteristics: None Exercise History: Physically active Physical Disabilities: None Lung Sounds: Clear to auscultation Heart Sounds: Regular Stress Test Details Test: Exercise stress testing was performed using a David protocol. Rest Stress HR Resting HR Supine: 70 bpm Max Heart Rate (APMHR): 159 bpm Resting HR Standin bpm Target HR (85% APMHR): 135 bpm Max HR Achieved: 145 bpm % of APMHR: 91 Recovery HR: 73 bpm HR response to stress: Normal HR response to stress BP Resting BP Supine: 144/80 mmHg Resting BP Standin/78 mmHg Max BP: 170/70 mmHg Recovery BP: 132/78 mmHg BP response to stress: Normal blood pressure response to stress. ECG Resting ECG: Sinus Rhythm Ectopy: None Stress ECG: Sinus Tachycardia ST Change: No significant ST segment changes noted Arrhythmia: Rare PVC Recovery ECG: Sinus Rhythm Recovery ST Change: No significant ST segment changes noted Recovery Arrhythmia: Rare PVC Clinical Reason for Termination: Target HR Achieved, Mod SOB Stress Symptoms: Mod SOB Exercise duration: 11 min05 sec Highest Stage Reached: Stage 4: 4.2 mph at 16% grade. Exercise capacity: 11.05 METs Angina Score: None Giron Treadmill Score: 9.3 Rate Pressure Product: 57513 Stress ECG Conclusion 1. Resting electrocardiogram showed low voltage but was otherwise normal 2. Patient exercised on the David protocol and completed a workload of 11 METS 3. Normal heart rate and blood pressure response to exercise. The patient achieved 91% of predicted heart rate for age 4. There was no electrocardiographic evidence of myocardial ischemia 5. There were no significant dysrhythmias Giron Treadmill Score is 9.3 which is Low risk.
== END ==
PROVIDERS: PCP Family Medicine; Visit Provider Physician Assistant Medical
DX: R07.9 Chest pain, unspecified (principal)
CPT/HCPCS: 93017

== ENCOUNTER 2024-03-07 08:02 | Day surgery (SDC) | payer BC, SELFPAY ==
--- NOTE | 2024-03-06 07:58 | W.PREOPHP ---
Assessment and Plan Assessment and plan (1) Tubulovillous adenoma: Status: Acute History of Present Illness History of Present Illness Chief Complaint: screening colonoscopy Narrative: Rom is 63 years old. he had a villous adenoma with high grade dysplasia 10 cm from the anus and he underwent transanal excision. He needs his next screening colonoscopy. Since his last office visit, there have been no significant changes to the interval history or physical exam. Pertinent Surgical Information We reviwed the pln for another screening colonoscpoy today. Rom had the opportunity to ask question about the proceedure. He was able to provide informed consent today and we can proceed with colonoscopy as planned. PFSH All Active Problems Tubulovillous adenoma (Acute) Dysplastic colon polyp (Acute) Post-nasal drip (Acute) Pharyngitis (Acute) Herpes simplex infection of rectum (Acute) Medical History Insomnia Hepatic cyst Sarcoidosis Hyperglycemia Body aches Chest pain Per pt.EKG in office came out ok. Rash, skin HSV (herpes simplex virus) infection Rectal bleed Essential hypertension Family History Father Personal history of malignant neoplasm Colon Cancer Social History Smoking/Tobacco Use Status: Never Smoking risk assessment performed?: Yes Alcohol Intake: never Drug use: Never Substance use type: does not use Do you feel safe at home: Yes Do you feel safe in your relationship?: Yes Meds Allergies and Home Medications Allergies Allergy/AdvReac Type Severity Reaction Status Date / Time No Known Allergies Allergy Verified 03/07/24 08:19 Home Medications ?Medication ?Instructions ?Recorded ?Confirmed ?Type risankizumab-rzaa 150 mg/mL 150 mg subcut Q12W 12/21/23 03/07/24 History subcutaneous pen injector (Skyrizi) rosuvastatin 5 mg tablet 5 mg PO DAILY 12/21/23 03/07/24 History Exam Const General: cooperative, healthy appearing and not in acute distress Neck Neck: normal visual inspection, no lymphadenopathy and supple Thyroid: thyroid normal Resp Effort & Inspection: normal respiratory effort Auscultation: clear to auscultation bilaterally Cardio Jugular venous pressure: no JVD Rate: regular rate Rhythm: regular rhythm Heart Sounds: S1 normal and S2 normal GI Inspection: normal to inspection Palpation: soft, no guarding, no hernias and nontender Percussion: normal to percussion Auscultation: normal bowel sounds Neuro General: patient alert, patient awake and patient oriented x3 Psych Appearance: grossly normal
--- NOTE | 2024-03-06 08:01 | W.PM.DSUDISC ---
Date of service: 03/07/24 Time of Service: 09:27 Discharge Plan Disposition Patient Disposition: Home Condition: Good Discharge Details Reason For Visit: screening colonoscopy Attending Provider: Devin Ventura Primary Care Provider: Aria Hernandes V Home Meds and New Rx's Prescriptions: Continued Skyrizi 150 mg/mL pen injector 150 mg subcut Q12W Patient Comments: Next dose 03/12 rosuvastatin 5 mg tablet 5 mg PO DAILY Discontinued polyethylene glycol 3350 17 gram/dose powder 238 g PO ONCE Qty: 238 0RF Rx Instructions: take per colonoscopy instructions bisacodyl [Dulcolax (bisacodyl)] 5 mg tablet,delayed release (DR/EC) 5 mg PO ONCE Qty: 8 0RF Rx Instructions: take per colonoscopy instructions Discharge Instructions Instructions: Colon polyps Additional Instructions: Rom, it was very nice meeting you today, and I hope you are comfortable during the procedure. Generally, things look very good. I had a good examination of the site where you had the previous worrisome polyp removed. I did a few routine biopsies here just to make sure the tissue is all normal surrounding it. I also found 2 other small polyps during the course of your colonoscopy. Neither one of them appear worrisome to me. Both were removed, and both will be sent off for testing similar to your previous experience. Once I know the nature of these polyps, the office will be in touch with recommendations for your next colonoscopy. If you have any questions in the meantime, please do not hesitate to ask. 1. If tolerated, consume a soft, low fiber diet for 1-2 days. [address] Do not drive, drink alcohol, operate machinery, make critical decisions, or do activities that require coordination or balance for 24 hours. 3. Because air was put into your colon during the procedure, expelling air from your rectum (passing gas or farting) is normal. 4. You may not have a bowel movement for 1-3 days because of the colonoscopy prep. This is normal. 5. Go directly to the emergency room if you notice any of the following: Develop chills (warm to touch), or if you have a thermometer and your temperature is above 101 Difficulty breathing or difficultly swallowing Persistent vomiting Severe abdominal pain, other than gas cramps Severe chest pain Black, tarry stools Any bleeding ? exceeding one tablespoon 6. Call your physician if the site where your intravenous was started becomes red, swollen, painful, and warm to touch. 7. Your physician has reviewed your pre-procedure medications. Please continue to take those medications as previously ordered. You will be given specific information/education regarding any changes to your medications before leaving. Activity:: Activity as Tolerated Diet:: As Tolerated Discharge Orders Discharge Orders: Discharge Order (Routine); Ordered 03/06/24 Ordered By: Devin Ventura DS: Diagnosis Discharge Diagnosis (1) Tubulovillous adenoma: Status: Acute Asessment and Plan: Follow-up on biopsy and polypectomy results
--- NOTE | 2024-03-06 08:02 | W.COLOREPORT ---
Date of service: 03/07/24 Time of Service: 09:29 Colonoscopy Report Date of procedure: 03/07/24 Pre-op diagnosis general: screening colonoscopy Post-op diagnosis procedure note: other (Colon polyps) Procedure: colonoscopy with polypectomy Surgeon: Devin Ventura Anesthesia Type: General:No Airway Estimated blood loss (mL): 5 Pathology: other (Biopsies of previous rectal excision site, 0.25 cm polyp at 55 cm, 0.25 cm polyp at 50 cm) Complications: None Disposition: same day Indications: Rom is a 63 year old manw how had a volloious adenoma with high grade dysplasia in the past. he is here for his next screening colonoscopy Prep: Miralax/Dulcolax Procedure Start Time: 09:05 Procedure End Time: 09:23 Retraction Time: 11 Findings: Healthy-appearing excision site in the rectum with previous colonoscopic tattoo; 0.25 cm polyp at 55 cm, 0.25 cm polyp at 50 cm Procedure Description: After the induction of monitored anesthetic care, and with the patient in left lateral decubitus position, I began by performing an external anorectal exam.? Perineum and skin were normal, as was the anal verge.? There was no evidence of external hemorrhoids.? Next, I performed a digital rectal exam.? I did not appreciate any abnormal findings.? Next, I advanced a colonoscope into the rectal vault.? I performed retroflexion.? The lower rectal vault top part of the anal column was normal and healthy appearing. I then turned the camera back forward. There was a previous colonoscopic tattoo in the midportion of the rectum. I was able to visualize what appears to be the excision site from his previous transanal polypectomy. I took several passes across this area. No polyps were appreciated. I did perform some cold forceps biopsies of the surrounding tissue for surveillance. Using insufflation, I then advanced the colonoscope beyond the rectal folds and into the sigmoid colon before advancing towards the cecum.? The quality of the prep was excellent.? The scope was noted to be in the cecum by identification of the ileocecal valve and appendiceal orifice.? I then began withdrawing the colonoscope using repeated irrigation as necessary for full evaluation of the colonic mucosa. Around 55 cm from the anal verge I identified a 0.25 cm polyp. ?It appeared flat in character. ?I was able to remove this with a cold forcep polypectomy. ?I examined the site, and there was minimal bleeding. ?Once this was completed, I continued to withdraw the scope and examine the remainder of the colonic mucosa. I found another polyp at 50 cm. This was also about 0.25 cm and flat. I removed this with cold forceps as well. Once the scope was withdrawn to the level of the rectum, great care was taken to examine portions of the rectal folds.? Finally, the scope was withdrawn and the patient was brought to the same-day surgery recovery unit as the anesthetic wore off. ?The findings and instructions were shared with the patient prior to discharge. [place] Bowel Prep [place] Bowel Prep Right Colon: 3 Transverse Colon: 3 Total Score: 6
[2024-03-07 08:12] VITALS: BP 136/93; PULSE 79; RESP 18; TEMP 36.7; O2SAT 96
[2024-03-07] MEDS: Lactated Ringers 1,000 ML 80 ML IV (08:35)
--- NOTE | 2024-03-07 08:52 | W.ANESPRE ---
General Info Date of Service Date Performed: 03/07/24 Height: 5 ft 7 in Weight: 83.4 kg Body Mass Index (BMI): 28.8 Surgical Procedure: Operation Date: 03/07/24 09:05 Proposed Procedure Side Surgeon p Colonoscopy Devin Ventura MD Meds Allergies and Home Medications Allergies Allergy/AdvReac Type Severity Reaction Status Date / Time No Known Allergies Allergy Verified 03/07/24 08:19 Home Medication ?Medication ?Instructions ?Recorded risankizumab-rzaa 150 mg/mL 150 mg subcut Q12W 12/21/23 subcutaneous pen injector (Skyrizi) rosuvastatin 5 mg tablet 5 mg PO DAILY 12/21/23 Current Visit Medications: Current Medications Generic Name Dose Route Start Last Admin Trade Name Freq PRN Reason Stop Dose Admin Ringer's Solution 1,000 mls @ 80 mls/hr 03/07/24 06:00 03/07/24 08:35 IV 04/03/24 23:59 80 mls/hr INFUSION MOOKIE Administration IV Miscellaneous Supplies 1 each 03/07/24 06:00 Iv Access IV 04/03/24 23:59 DIRECTED MOOKIE Ondansetron HCl 4 mg 03/06/24 08:04 Ondansetron 4 Mg/2 Ml Vial IVP 04/05/24 08:03 Q4H PRN PRN Nausea / Vomiting Sodium Chloride 0 ml 03/07/24 06:00 Normal Saline Flush 10 Ml Syr IV 04/03/24 23:59 PRN PRN Sodium Chloride 0 ml 03/07/24 06:00 Normal Saline 10 Ml Vial IJ 04/03/24 23:59 DIRECTED PRN Sterile Water 0 ml 03/07/24 06:00 Water,Injection,Sterile 10 Ml Vial IJ 04/03/24 23:59 DIRECTED PRN PFSH Active Problems Active Problems: Problem Status Onset Code Tubulovillous adenoma Acute D36.9 Dysplastic colon polyp Acute K63.5 Post-nasal drip Acute R09.82 Pharyngitis Acute J02.9 Herpes simplex infection of rectum Acute A60.1 Medical History Medical History Insomnia Hepatic cyst Sarcoidosis Hyperglycemia Body aches Chest pain Per pt.EKG in office came out ok. Rash, skin HSV (herpes simplex virus) infection Rectal bleed Essential hypertension Tobacco Smoking/Tobacco Use Status: Never Alcohol Alcohol Intake: never Substance Use Substance use: Never Substance use type: does not use Vital Signs and Lab Results Vital Signs Most Recent Vital Signs in EMR: Most Recent Vital Signs Temp Pulse Resp BP Pulse Ox 36.7 C 79 18 136/93 H 96 03/07/24 08:12 03/07/24 08:12 03/07/24 08:12 03/07/24 08:12 03/07/24 08:12 Lab Results Blood Type / Crossmatch: No Data to Display Complete Blood Count: No Data to Display Complete Metabolic Panel: No Data to Display Liver Function Panel: No Data to Display Coagulation Panel: No Data to Display Cardiac Panel: No Data to Display Arterial Blood Gas: No Data to Display Venous Blood Gas: No Data to Display Pancreas Panel: No Data to Display Thyroid Panel: No Data to Display Infectious Disease: No Data to Display Blood Cultures: No Data to Display Toxicology Panel: No Data to Display Imaging and Studies Imaging and Studies Study information below may be from another EMR and interpreted by another provider. Please see original notes in EMR for more complete details. EKG Summary: 11/2020: sinus rhythm, LAE. Anesthesia Assessment and Plan Anesthesia History Personal History: Delayed Emergence Family History: No Family History of Anesthesia Complications Exercise Tolerance Exercise Tolerance: Metabolic Equivalents>4 Pertinent Negatives Pertinent Negatives: No Symptoms of GERD Cardiac & Pulmonary Exam Cardiac Exam: Normal S1/S2 Heart Sounds Pulmonary Exam: Clear Bilateral Breath Sounds Implantable Cardiac Device Does patient have a Pacemaker or an ICD?: No Airway Exam Known Difficult Airway: No Mallampati Class: 2 Mouth Opening: Normal (> 3cm) Thyromental Distance: Greater than 3 cm Neck Range of Motion: Full ROM Neck Circumference: Normal Teeth Condition: Normal Dentition ASA Classification ASA Score: ASA 2 Emergency Case?: No NPO Status NPO Status: NPO Clears >2 hours, Solids >8 hours Anesthesia Plan Resuscitation Status: Full Code Anesthesia Technique: General Anesthesia Airway Planned: Natural Airway Monitors Used: Standard Monitors
[2024-03-07 08:53] VITALS: BMI 28.8
--- NOTE | 2024-03-07 09:07 | BOWEL_PTH ---
PATIENT: Rom Singh LOC: [facility] U#:[id number] AGE/SX: 63/M ROOM: RE03/07/[address]: Devin Ventura MD : 1960 BED: DIS: 03/07/2024 SPEC #: [id number] RECD: 03/07/24 12:59 STATUS: JUSTINE RE #: [id number] STEVIE: 03/07/24 09:[address]: Devin Ventura DEPT: Surgical Specimen RECD BY: Celeste Simpson ENTERED: 03/07/24 13:00 SP TYPE: Bowel OTHR DR: Aria Hernandes V Tissues: 1 - BIOPSY BOWEL 2 - BIOPSY BOWEL 3 - BIOPSY BOWEL Procedures: GROSS AND MICRO LEVEL 4 Comments: [id number]
[2024-03-07 09:28] VITALS: BP 115/72; PULSE 66; RESP 18; TEMP 36.4; O2SAT 97
--- NOTE | 2024-03-07 09:41 | W.ANESPOSTOP ---
Postoperative Evaluation Date, Time and Location Date Performed: 03/07/24 Time Performed: 09:41 Patient Location: Day Surgery Unit Vital Signs Most Recent Imported Vital Signs: Most Recent Vital Signs Temp Pulse Resp BP Pulse Ox 36.4 C L 66 18 115/72 97 03/07/24 09:28 03/07/24 09:28 03/07/24 09:28 03/07/24 09:28 03/07/24 09:28 Pain Score Most Recent Pain Score: Most Recent Pain Score Pain Level 0 03/07/24 09:28 Assessment Mental Status: Awake (Alert & Oriented to Patient Baseline) Airway and Respiratory Function: Patent airway with normal (patient baseline) respiratory exam Cardiovascular Function: Hemodynamically Stable Hydration Status: Adequately Hydrated Nausea & Vomiting: No Nausea or Vomiting Pain: Pt. Denies Any Pain Peripheral Nerve Block: Patient did not receive a nerve block
[2024-03-07 10:02] VITALS: BP 125/75; PULSE 61; RESP 18; TEMP 36.4; O2SAT 96
== END 2024-03-07 10:25 | disposition home or self-care (01) ==
LOC: SUR 08:02
PROVIDERS: PCP Family Medicine; Visit Provider Surgery
PROC: 0DJD8ZZ Inspection of Lower Intestinal Tract, Via Natural or Artificial Opening Endoscopic (ICD-10-PCS; CPT 45378; principal; 2024-03-07 09:00)
DX: D12.5 Benign neoplasm of sigmoid colon (principal); Z12.11 Encounter for screening for malignant neoplasm of colon; K62.89 Other specified diseases of anus and rectum
CPT/HCPCS: 45380; 88305; J2003; J2704

== ENCOUNTER 2024-12-28 14:02 | Outpatient (REF) | payer BC, SELFPAY ==
[2024-12-28 16:45] LABS: ALT 40 U/L (16-63); AST 20 U/L (15-37); Albumin 4.1 g/dL (3.4-5.0); Alkaline Phosphatase 94 U/L (46-116); Anion Gap 10.7 mmol/L (3-11); BUN 13 mg/dL (7-18); Bilirubin, Total 0.5 mg/dL (0.2-1.0); CO2 26.3 mmol/L (21.0-32.0); Calcium 9.4 mg/dL (8.5-10.1); Calculated LDL 93 mg/dL (<100); Chloride 104 mmol/L (98-107); Cholesterol 170 mg/dL (<200); Estimated GFR 75.90 (mL/min/1.73m2); Ferritin 93 ng/mL (26-388); Glucose 153 mg/dL (74-106); HDL Cholesterol 36 mg/dL (>or=40); Magnesium 2.0 mg/dL (1.8-2.4); Potassium 3.8 mmol/L (3.5-5.1); Sodium 141 mmol/L (136-145); Total Protein 7.1 g/dL (6.4-8.2); Triglyceride 208 mg/dL (<150)
[2024-12-28 16:53] LABS: Hemoglobin A1C 5.5 % (<5.7)
== END 2024-12-28 14:03 | disposition home or self-care (01) ==
LOC: NCHCN 14:02
PROVIDERS: PCP Physician Assistant Medical; Visit Provider Physician Assistant Medical
DX: G47.00 Insomnia, unspecified (principal); E78.5 Hyperlipidemia, unspecified; Z13.1 Encounter for screening for diabetes mellitus
CPT/HCPCS: 80053; 80061; 82728; 83036; 83735

== ENCOUNTER 2025-01-13 15:24 | Outpatient (REF) | payer BC, SELFPAY ==
[2025-01-13 22:44] LABS: PSA, Diagnostic 5.0 ng/mL (<=4.5)
== END 2025-01-13 15:25 | disposition home or self-care (01) ==
LOC: NCHCN 15:24
PROVIDERS: PCP Physician Assistant Medical; Visit Provider Physician Assistant Medical
DX: Z12.5 Encounter for screening for malignant neoplasm of prostate (principal)
CPT/HCPCS: 84153